=== PATIENT | female | born 1955 | race Caucasian/White ===

== ENCOUNTER 2016-08-01 08:48 | Outpatient (CLI) | payer MEDICAID | END 2016-08-01 08:49 | disposition EMS.NT | LOC: EMS 08:48 | PROVIDERS: ATTEND Surgery | DX: R41.0 Disorientation, unspecified (principal) ==

== ENCOUNTER 2016-08-09 10:16 | Outpatient (CLI) | payer MEDICAID | END 2016-08-09 10:17 | disposition home or self-care (01) | LOC: LAB 10:16 | PROVIDERS: ATTEND Nurse Practitioner Gerontology | DX: K74.60 Unspecified cirrhosis of liver (principal); R56.9 Unspecified convulsions | CPT/HCPCS: 36415; 80053; 80185; 82140 ==

== ENCOUNTER 2016-08-13 09:32 | Outpatient (CLI) | payer MEDICAID ==
[2016-08-13 10:20] LABS: ALBUMIN/GLOBULIN RATIO 1.2 (1.0-2.2); BILIRUBIN,TOTAL 1.5 mg/dL (0.2-1.0); CALCIUM 9.2 mg/dL (8.5-10.3); CREATININE 0.5 mg/dL (0.4-1.0); POTASSIUM 3.9 mmol/L (3.5-5.0); TOTAL PROTEIN 6.2 g/dL (6.7-8.2)
== END 2016-08-13 09:33 | disposition home or self-care (01) ==
LOC: LAB 09:32
PROVIDERS: ATTEND Nurse Practitioner Gerontology
DX: K74.60 Unspecified cirrhosis of liver (principal); R56.9 Unspecified convulsions
CPT/HCPCS: 36415; 80053; 80185; 82140

== ENCOUNTER 2016-09-13 16:11 | Outpatient (CLI) | payer MEDICAID | END 2016-09-13 16:12 | disposition home or self-care (01) | LOC: LAB 16:11 | PROVIDERS: ATTEND Nurse Practitioner Gerontology | DX: K74.60 Unspecified cirrhosis of liver (principal) | CPT/HCPCS: 36415; 82140; 87389 ==

== ENCOUNTER 2016-10-13 00:10 | Outpatient (CLI) | payer MEDICAID | END 2016-10-13 00:11 | disposition EMS.NT | LOC: EMS 00:10 | PROVIDERS: ATTEND Surgery | DX: R41.82 Altered mental status, unspecified (principal) ==

== ENCOUNTER 2018-05-10 23:09 | Emergency (ER) | payer MEDICAID ==
[2018-05-11 00:11] LABS: BASOPHILS % (AUTO) 0.8 %; EOSINOPHILS # (AUTO) 0.1 10^3/uL (0.0-0.7); EOSINOPHILS % (AUTO) 2.4 %; LYMPHOCYTES # (AUTO) 1.1 10^3/uL (1.5-3.5); LYMPHOCYTES % (AUTO) 24.4 %; MEAN CORPUSCULAR HEMOGLOBIN 32.2 pg (27.0-31.0); MEAN CORPUSCULAR HGB CONC 34.2 g/dL (32.0-36.0); MEAN PLATELET VOLUME 7.7 fL (7.9-10.8); MONOCYTES # (AUTO) 0.3 10^3/uL (0.0-1.0); MONOCYTES % (AUTO) 7.6 %; NEUTROPHILS # (AUTO) 2.9 10^3/uL (1.5-6.6); NEUTROPHILS % (AUTO) 64.8 %; PLT - PLATELET COUNT 111 10^3/uL (130-450); RED BLOOD COUNT 4.03 10^6/uL (4.20-5.40); RED CELL DISTRIBUTION WIDTH 15.9 % (12.0-15.0); WHITE BLOOD COUNT 4.4 x10^3/uL (4.8-10.8)
[2018-05-11 00:16] LABS: INR 1.7 (0.8-1.2); PT - PROTHROMBIN TIME 18.9 secs (9.9-12.6)
[2018-05-11 00:25] LABS: ALBUMIN 3.4 g/dL (3.2-5.5); ALBUMIN/GLOBULIN RATIO 1.1 (1.0-2.2); ALKALINE PHOSPHATASE 73 IU/L (42-121); ALT ALANINE AMINOTRANSFERASE 23 IU/L (10-60); AST ASPARTATE AMINOTRANSFERASE 40 IU/L (10-42); BILIRUBIN,TOTAL 1.8 mg/dL (0.2-1.0); BUN - BLOOD UREA NITROGEN 10 mg/dL (6-20); CALCIUM 9.3 mg/dL (8.5-10.3); CARBON DIOXIDE - CO2 22 mmol/L (21-32); CHLORIDE 109 mmol/L (101-111); CREATININE 0.3 mg/dL (0.4-1.0); GFR - MDRD 225 (>89); GLUCOSE 96 mg/dL (70-100); LIPASE 47 U/L (22-51); SODIUM 140 mmol/L (135-145); TOTAL PROTEIN 6.5 g/dL (6.7-8.2)
--- NOTE | 2018-05-11 00:27 | XRAY Report ---
Reason: chest pain Procedure Date: 05/11/2018 Accession Number: [id number] / [id number] Procedure: XR - Chest 1 View X-Ray CPT Code: 26019 FULL RESULT: EXAM: CHEST RADIOGRAPHY EXAM DATE: 05/11/2018 12:00 AM. CLINICAL HISTORY: Chest pain. COMPARISON: CHEST 1 VIEW 09/27/2014 9:27 PM. TECHNIQUE: 1 view. FINDINGS: Lungs/Pleura: No significant consolidation, effusion, or definite pneumothorax. Mediastinum: Cardiac silhouette is within normal limits when accounting for lung volumes and technique. Other: Old injury to the left acromioclavicular joint is noted, with grade 3 AC joint separation. Left distal clavicular osteotomy. Moderate left AC joint degenerative change partially visualized. IMPRESSION: Stable appearance of the chest without acute cardiopulmonary abnormality. [facility]
[2018-05-11 01:50] LABS: BILIRUBIN,URINE NEGATIVE (NEGATIVE); CLARITY,URINE CLEAR (CLEAR); GLUCOSE, URINE (UA) NEGATIVE (NEGATIVE); KETONES,URINE (UA) 15 mg/dL (NEGATIVE); LEUKOCYTE ESTERASE, URINE TRACE (NEGATIVE); MUDS CUTOFF CONCENTRATIONS CUTOFF CONC BELOW:; NITRITE,URINE NEGATIVE (NEGATIVE); OCCULT BLOOD,URINE NEGATIVE (NEGATIVE); PROTEIN,URINE NEGATIVE (NEGATIVE); UROBILINOGEN,URINE 0.2 (NORMAL) E.U./dL (NORMAL)
[2018-05-11 01:51] LABS: BACTERIA,URINE Rare /HPF (None Seen); MUCUS,URINE Few Strands; RBC,URINE None Seen /HPF (0-5); SQUAMOUS EPITHELIAL CELL,UR MOD Squamous (<= Few)
[2018-05-11 02:41] LABS: AMPHETAMINE SCREEN,URINE NEGATIVE (NEGATIVE); BENZODIAZEPINES SCREEN, URINE NEGATIVE (NEGATIVE); COCAINE SCREEN URINE NEGATIVE (NEGATIVE); METHADONE SCREEN, URINE NEGATIVE (NEGATIVE); METHAMPHETAMINES SCREEN, URINE NEGATIVE (NEGATIVE); OPIATE SCREEN, URINE NEGATIVE (NEGATIVE); OXYCODONE SCREEN, URINE NEGATIVE (NEGATIVE); PROPOXYPHENE SCREEN, URINE NEGATIVE (NEGATIVE); TRICYCLIC ANTIDEPRESSANT,URINE NEGATIVE (NEGATIVE)
--- NOTE | 2018-05-11 03:10 | ED Physician Documentation ---
History of Present Illness - Stated complaint Stated Complaint: HALLUCINATIONS - Chief complaint Chief Complaint: General - History obtained from History obtained from: Patient, Family - History of Present Illness Timing: How many days ago (2) Pain level max: 0 Pain level now: 0 Severity Comments: mild Quality: hearing voices Radiates to: none Improved by: nothing Worsened by: not taking lactulose Review of Systems Constitutional: reports: Reviewed and negative Eyes: reports: Reviewed and negative Ears: reports: Reviewed and negative Nose: reports: Reviewed and negative Throat: reports: Reviewed and negative Cardiac: reports: Reviewed and negative Respiratory: reports: Reviewed and negative GI: reports: Reviewed and negative : reports: Reviewed and negative Skin: reports: Reviewed and negative Musculoskeletal: reports: Reviewed and negative Neurologic: reports: Reviewed and negative Psychiatric: reports: Reviewed and negative Endocrine: reports: Reviewed and negative Immunocompromised: reports: Reviewed and negative PD PAST MEDICAL HISTORY - Past Medical History Cardiovascular: Hypertension, High cholesterol GI: Cirrhosis, Other : Incontinence HEENT: None Psych: Anxiety Musculoskeletal: Chronic back pain, Other - Past Surgical History Past Surgical History: Yes HEENT: Cataracts, Other - Present Medications Home Medications: Ambulatory Orders Medication Instructions Recorded Confirmed Lactulose 0 gm PO DAILY 05/10/18 05/10/18 Propranolol [Inderal] 20 mg PO DAILY 05/10/18 05/10/18 Lactulose 30 gm PO QID PRN #100 packet 05/11/18 - Allergies Allergies/Adverse Reactions: Allergies Allergy/AdvReac Type Severity Reaction Status Date / Time No Known Drug Allergies Allergy Verified 05/10/18 23:17 - Living Situation Living Situation: reports: With family Living Arrangement: reports: At home - Social History Does the pt smoke?: No Smoking Status: Never smoker Does the pt drink ETOH?: Yes Does the pt have substance abuse?: No - Family History Family history: reports: Other (Reviewed and not pertinent) - Immunizations Immunizations are current?: Yes - POLST Patient has POLST: No PD ED PE NORMAL - Vitals Vital signs reviewed: Yes - General General: Alert and oriented X 3, No acute distress - HEENT HEENT: PERRL - Neck Neck: Supple, no meningeal sign - Cardiac Cardiac: RRR, No murmur - Respiratory Respiratory: Clear bilaterally - Abdomen Abdomen: Normal bowel sounds, Soft, Non tender, Non distended - Derm Derm: Warm and dry - Extremities Extremities: No deformity - Neuro Neuro: Alert and oriented X 3, Other (No asterixis) - Psych Psych: Normal mood, Normal affect Results - Vitals Vitals: Vital Signs - 24 hr 05/10/18 05/11/18 05/11/18 23:12 01:10 03:46 Temperature 37.2 C 36.3 C L 36.9 C Heart Rate 83 74 86 Respiratory 18 16 18 Rate Blood Pressure 154/77 H 123/72 129/81 H O2 Saturation 97 96 95 Oxygen O2 Source Room air - Labs Labs: Laboratory Tests 05/10/18 05/10/18 05/10/18 23:50 23:50 23:50 WBC 4.4 L RBC 4.03 L Hgb 13.0 Hct 37.9 MCV 94.0 MCH 32.2 H MCHC 34.2 RDW 15.9 H Plt Count 111 L MPV 7.7 L Neut # (Auto) 2.9 Lymph # (Auto) 1.1 L [place] # (Auto) 0.3 Eos # (Auto) 0.1 Baso # (Auto) 0.0 Absolute Nucleated RBC 0.00 Nucleated RBC % 0.1 PT 18.9 H INR 1.7 H Sodium 140 Potassium 3.2 L Chloride 109 Carbon Dioxide 22 Anion Gap 9.0 BUN 10 Creatinine 0.3 L Estimated GFR (MDRD) 225 Glucose 96 Lactic Acid Calcium 9.3 Total Bilirubin 1.8 H AST 40 ALT 23 Alkaline Phosphatase 73 Ammonia Troponin I Total Protein 6.5 L Albumin 3.4 Globulin 3.1 Albumin/Globulin Ratio 1.1 Lipase 47 TSH Urine Color Urine Clarity Urine pH Ur Specific [place] Urine Protein Urine Glucose (UA) Urine Ketones Urine Occult Blood Urine Nitrite Urine Bilirubin Urine Urobilinogen Ur Leukocyte Esterase Urine RBC Urine WBC Ur Squamous Epith Cells Urine Bacteria Urine Mucus Ur Microscopic Review Urine Culture Comments Urine Opiates Screen Ur Oxycodone Screen Urine Methadone Screen Ur Propoxyphene Screen Ur Barbiturates Screen Ur Tricyclics Screen Ur Phencyclidine Scrn Ur Amphetamine Screen U Methamphetamines Scrn U Benzodiazepines Scrn Urine Cocaine Screen U Cannabinoids Screen Ethyl Alcohol < 5.0 05/10/18 05/10/18 05/10/18 23:50 23:50 23:50 WBC RBC Hgb Hct MCV MCH MCHC RDW Plt Count MPV Neut # (Auto) Lymph # (Auto) [place] # (Auto) Eos # (Auto) Baso # (Auto) Absolute Nucleated RBC Nucleated RBC % PT INR Sodium Potassium Chloride Carbon Dioxide Anion Gap BUN Creatinine Estimated GFR (MDRD) Glucose Lactic Acid 1.2 Calcium Total Bilirubin AST ALT Alkaline Phosphatase Ammonia 43.1 H Troponin I Total Protein Albumin Globulin Albumin/Globulin Ratio Lipase TSH 0.75 Urine Color Urine Clarity Urine pH Ur Specific [place] Urine Protein Urine Glucose (UA) Urine Ketones Urine Occult Blood Urine Nitrite Urine Bilirubin Urine Urobilinogen Ur Leukocyte Esterase Urine RBC Urine WBC Ur Squamous Epith Cells Urine Bacteria Urine Mucus Ur Microscopic Review Urine Culture Comments Urine Opiates Screen Ur Oxycodone Screen Urine Methadone Screen Ur Propoxyphene Screen Ur Barbiturates Screen Ur Tricyclics Screen Ur Phencyclidine Scrn Ur Amphetamine Screen U Methamphetamines Scrn U Benzodiazepines Scrn Urine Cocaine Screen U Cannabinoids Screen Ethyl Alcohol 05/10/18 05/11/18 23:50 01:32 WBC RBC Hgb Hct MCV MCH MCHC RDW Plt Count MPV Neut # (Auto) Lymph # (Auto) [place] # (Auto) Eos # (Auto) Baso # (Auto) Absolute Nucleated RBC Nucleated RBC % PT INR Sodium Potassium Chloride Carbon Dioxide Anion Gap BUN Creatinine Estimated GFR (MDRD) Glucose Lactic Acid Calcium Total Bilirubin AST ALT Alkaline Phosphatase Ammonia Troponin I < 0.04 Total Protein Albumin Globulin Albumin/Globulin Ratio Lipase TSH Urine Color YELLOW Urine Clarity CLEAR Urine pH 7.0 Ur Specific [place] 1.015 Urine Protein NEGATIVE Urine Glucose (UA) NEGATIVE Urine Ketones 15 H Urine Occult Blood NEGATIVE Urine Nitrite NEGATIVE Urine Bilirubin NEGATIVE Urine Urobilinogen 0.2 (NORMAL) Ur Leukocyte Esterase TRACE H Urine RBC None Seen Urine WBC 4-5 Ur Squamous Epith Cells MOD Squamous H Urine Bacteria Rare Urine Mucus Few Strands Ur Microscopic Review INDICATED Urine Culture Comments NOT INDICATED Urine Opiates Screen NEGATIVE Ur Oxycodone Screen NEGATIVE Urine Methadone Screen NEGATIVE Ur Propoxyphene Screen NEGATIVE Ur Barbiturates Screen NEGATIVE Ur Tricyclics Screen NEGATIVE Ur Phencyclidine Scrn NEGATIVE Ur Amphetamine Screen NEGATIVE U Methamphetamines Scrn NEGATIVE U Benzodiazepines Scrn NEGATIVE Urine Cocaine Screen NEGATIVE U Cannabinoids Screen NEGATIVE Ethyl Alcohol PD MEDICAL DECISION MAKING - ED course Complexity details: reviewed results, re-evaluated patient, d/w patient, d/w family ED course: 63-year-old female With end-stage liver disease presents with auditory hallucinations. Patient has no asterixis on exam. Alert and oriented to person, place, date, president. Patient complaining of intermittent auditory hallucinations but otherwise is at baseline.Patient discharged in the care of family with prescription for lactulose. Departure - Departure Disposition: 01 Home, Self Care Clinical Impression: Increased ammonia level, Hallucination Condition: Good Instructions: Lactulose oral solution Prescriptions: Lactulose 30 gm PO QID PRN #100 packet PRN Reason: for 2-3 loose poops daily Discharge Date/Time: 05/11/18 04:00
[2018-05-11 03:47] VITALS: BP 129/81
== END 2018-05-11 04:00 | disposition home or self-care (01) ==
LOC: ED 23:09
DX: R44.0 Auditory hallucinations (principal); E72.20 Disorder of urea cycle metabolism, unspecified; E78.00 Pure hypercholesterolemia, unspecified; I10 Essential (primary) hypertension; K72.90 Hepatic failure, unspecified without coma
CPT/HCPCS: 36415; 71045; 80053; 80306; 80320; 81001; 81003; 82140; 83605; 83690; 84443; 84484; 85025; 85610; 87040; 87086; 93005; 99283

== ENCOUNTER 2018-05-12 20:55 | Outpatient (CLI) | payer MEDICAID | END 2018-05-12 20:56 | disposition critical access hospital (66) | LOC: EMS 20:55 | PROVIDERS: ATTEND Surgery | DX: R44.8 Other symptoms and signs involving general sensations and perceptions (principal) | CPT/HCPCS: A0425; A0429 ==

== ENCOUNTER 2018-05-12 21:14 | Emergency (ER) | payer MEDICAID ==
[2018-05-12] MEDS ORDERED: POTASSIUM BICARB 25 MEQ TABLET PO STA (21:30)
--- NOTE | 2018-05-12 21:33 | ED Physician Documentation ---
PD HPI SYNCOPE - Stated complaint Stated Complaint: SZ - History obtained from History obtained from: Patient - History of Present Illness Timing - onset: Other (63-year-old woman with history of alcohol abuse, she says she has not had a drink in a year and a half. She also has a history of seizures. Recently she is changed her diet a lot and says she is having a lot of Merly seizures I do not know what Merly seizures are, she describes them as feeling like she is about to having a seizure but never having a big seizure. She never loses consciousness. She was seen here the other night by Dr. Miranda for hallucinations which have resolved with the administration of the lactulose that she was prescribed. She was on phenytoin in the past for seizures but has not been for a couple of years.) Review of Systems Constitutional: reports: Reviewed and negative Cardiac: reports: Reviewed and negative Respiratory: reports: Reviewed and negative PD PAST MEDICAL HISTORY - Past Medical History Cardiovascular: Hypertension, High cholesterol GI: Cirrhosis, Other : Incontinence HEENT: None Psych: Anxiety Musculoskeletal: Chronic back pain, Other - Past Surgical History Past Surgical History: Yes HEENT: Cataracts, Other - Present Medications Home Medications: Ambulatory Orders Medication Instructions Recorded Confirmed Lactulose 0 gm PO DAILY 05/10/18 05/10/18 Propranolol [Inderal] 20 mg PO DAILY 05/10/18 05/10/18 Lactulose 30 gm PO QID PRN #100 packet 05/11/18 - Allergies Allergies/Adverse Reactions: Allergies Allergy/AdvReac Type Severity Reaction Status Date / Time No Known Drug Allergies Allergy Verified 05/10/18 23:17 - Social History Does the pt smoke?: No Smoking Status: Never smoker Does the pt drink ETOH?: Yes Does the pt have substance abuse?: No - Immunizations Immunizations are current?: Yes - POLST Patient has POLST: No PD ED PE NORMAL - Vitals Vital signs reviewed: Yes - General General: Alert and oriented X 3, No acute distress - HEENT HEENT: PERRL, EOMI - Neck Neck: Supple, no meningeal sign, No bony TTP - Cardiac Cardiac: RRR, No murmur - Respiratory Respiratory: No respiratory distress, Clear bilaterally - Abdomen Abdomen: Non tender - Back Back: No CVA TTP, No spinal TTP - Derm Derm: Normal color, Warm and dry - Extremities Extremities: No edema, No calf tenderness / cord - Neuro Neuro: Alert and oriented X 3, Normal speech Eye Opening: Spontaneous Motor: Obeys Commands Verbal: Oriented GCS Score: 15 Results - Vitals Vitals: Oxygen O2 Source Room air PD MEDICAL DECISION MAKING - ED course ED course: This is a 63-year-old woman who presents with poorly described or seizure episodes without any actual seizure activity. Her examination is normal. She had a thorough work-up the other night demonstrating hypokalemia which she seems to be somewhat perseverating on and like her potassium replaced again. I discussed with her that I recommended may be putting her back on phenytoin which she is been on in the past pending neurologic follow-up which she does not want to do. Departure - Departure Disposition: 01 Home, Self Care Clinical Impression: Seizure-like activity Condition: Good Record reviewed to determine appropriate education?: Yes Comments: Return anytime if you want to start seizure medication or if you get worse. Otherwise I recommend you follow-up with your neurologist.
[2018-05-12 21:45] VITALS: BP 139/78
== END 2018-05-12 21:51 | disposition home or self-care (01) ==
LOC: EDUNIT# → ED 21:14
DX: R56.9 Unspecified convulsions (principal); E87.6 Hypokalemia; I10 Essential (primary) hypertension
CPT/HCPCS: 99283; A9270

== ENCOUNTER 2018-08-20 09:15 | Emergency (ER) | payer MEDICAID ==
--- NOTE | 2018-08-20 09:41 | ED Physician Documentation ---
PD HPI BACK PAIN - Stated complaint Stated Complaint: BACK PX - Chief complaint Chief Complaint: General - History obtained from History obtained from: Patient - History of Present Illness Timing - onset: Yesterday Timing - duration: Days (1) Timing - details: Abrupt onset, Still present Location: Lower, Right Quality: Aching (mostly aching pain lower right back, but has feeling of myalgias diffusely. Has some cough and congestion. Feeling of chills without measured fever. Some nausea.) Associated symptoms: Weakness (generally). No: Fever (but feeling of chills), Numbness, Incontinent of urine, Hematuria Worsened by: Movement. No: Twisting Contributing factors: Other (feeling like URI symptoms. Has not had dysuria.). No: Lifting, Twisting, Trauma Similar symptoms before: Has not had sx before Recently seen: Not recently seen Review of Systems Constitutional: reports: Chills, Myalgias, Fatigue. denies: Fever Nose: reports: Congestion. denies: Rhinorrhea / runny nose Throat: denies: Sore throat Cardiac: denies: Chest pain / pressure Respiratory: reports: Cough GI: reports: Nausea. denies: Vomiting, Diarrhea : denies: Dysuria, Frequency, Hematuria Skin: reports: Lesions (bisters on 2nd toes both sides, states has been walking a lot the past week. Had wet shoes without socks and walked in them a lot the past 2 days.). denies: Rash Neurologic: reports: Generalized weakness. denies: Focal weakness, Numbness, Near syncope, Altered mental status, Headache, Head injury Endocrine: denies: Weight loss Immunocompromised: denies: Immunocompromised PD PAST MEDICAL HISTORY - Past Medical History Cardiovascular: Hypertension, High cholesterol GI: Cirrhosis, Other : Incontinence HEENT: None Psych: Anxiety Musculoskeletal: Chronic back pain, Other - Past Surgical History Past Surgical History: Yes HEENT: Cataracts, Other - Present Medications Home Medications: Ambulatory Orders Medication Instructions Recorded Confirmed Lactulose 0 gm PO DAILY 05/10/18 08/20/18 Mupirocin 1 applic TP TID #15 g 08/20/18 Naproxen 500 mg PO BID #20 tablet 08/20/18 Vits A and D/White Pet/Lanolin [A 1 applic TP DAILY #42.5 oint...g. 08/20/18 and D Ointment] - Allergies Allergies/Adverse Reactions: Allergies Allergy/AdvReac Type Severity Reaction Status Date / Time No Known Drug Allergies Allergy Verified 08/20/18 09:29 - Social History Does the pt smoke?: No Smoking Status: Never smoker Does the pt drink ETOH?: Yes Does the pt have substance abuse?: No - Immunizations Immunizations are current?: Yes - POLST Patient has POLST: No PD ED PE NORMAL - Vitals Vital signs reviewed: Yes - General General: Alert and oriented X 3, No acute distress, Well developed/nourished - HEENT HEENT: Moist mucous membranes, Pharynx benign - Neck Neck: Supple, no meningeal sign, No adenopathy - Cardiac Cardiac: RRR, No murmur - Respiratory Respiratory: Clear bilaterally - Abdomen Abdomen: Normal bowel sounds, Soft, Non tender, Non distended - Back Back: No CVA TTP - Derm Derm: Normal color, Warm and dry - Extremities Extremities: Other (2nd toes both feet with unroofed blisters with skin still attached, moist skin, without signs of infection at the bases. bottoms of feet both sides are red with some mild element of punctate skin changes without pustules, appears c/w wet injury. ) - Neuro Neuro: Alert and oriented X 3, No motor deficit, Normal speech Results - Vitals Vitals: Vital Signs - 24 hr 08/20/18 08/20/18 08/20/18 09:24 09:28 13:04 Temperature 35.7 C L 36.6 C Heart Rate 79 82 84 Respiratory 14 18 18 Rate Blood Pressure 170/98 H 153/71 H 149/84 H O2 Saturation 99 97 96 Oxygen O2 Source Room air - Labs Labs: Laboratory Tests 08/20/18 08/20/18 08/20/18 10:16 10:16 10:16 WBC 3.6 L RBC 3.74 L Hgb 12.4 Hct 35.3 L MCV 94.4 MCH 33.2 H MCHC 35.1 RDW 15.5 H Plt Count 73 L MPV 10.0 Neut # (Auto) 2.3 Lymph # (Auto) 0.7 L [place] # (Auto) 0.5 Eos # (Auto) 0.1 Baso # (Auto) 0.0 Absolute Nucleated RBC 0.00 Nucleated RBC % 0.0 Sodium 139 Potassium 3.3 L Chloride 107 Carbon Dioxide 22 Anion Gap 10.0 BUN 6 Creatinine 0.4 Estimated GFR (MDRD) 161 Glucose 118 H Lactic Acid 2.6 H Calcium 9.3 Magnesium 1.5 L Total Bilirubin 2.4 H AST 44 H ALT 26 Alkaline Phosphatase 79 Total Protein 6.2 L Albumin 3.5 Globulin 2.7 Albumin/Globulin Ratio 1.3 Lipase 52 H Urine Color Urine Clarity Urine pH Ur Specific [place] Urine Protein Urine Glucose (UA) Urine Ketones Urine Occult Blood Urine Nitrite Urine Bilirubin Urine Urobilinogen Ur Leukocyte Esterase Ur Microscopic Review Urine Culture Comments 08/20/18 10:30 WBC RBC Hgb Hct MCV MCH MCHC RDW Plt Count MPV Neut # (Auto) Lymph # (Auto) [place] # (Auto) Eos # (Auto) Baso # (Auto) Absolute Nucleated RBC Nucleated RBC % Sodium Potassium Chloride Carbon Dioxide Anion Gap BUN Creatinine Estimated GFR (MDRD) Glucose Lactic Acid Calcium Magnesium Total Bilirubin AST ALT Alkaline Phosphatase Total Protein Albumin Globulin Albumin/Globulin Ratio Lipase Urine Color YELLOW Urine Clarity CLEAR Urine pH 7.0 Ur Specific [place] <=1.005 Urine Protein NEGATIVE Urine Glucose (UA) NEGATIVE Urine Ketones NEGATIVE Urine Occult Blood NEGATIVE Urine Nitrite NEGATIVE Urine Bilirubin NEGATIVE Urine Urobilinogen 4 H Ur Leukocyte Esterase NEGATIVE Ur Microscopic Review NOT INDICATED Urine Culture Comments NOT INDICATED PD MEDICAL DECISION MAKING - ED course Complexity details: re-evaluated patient, considered differential (consider viral illness, but will look for pneumonia, UTI, check blood count and lytes. Seems dehydrated likely. ), d/w patient Departure - Departure Disposition: 01 Home, Self Care Clinical Impression: Viral syndrome, Myalgia Toe blister without infection Qualifiers: Encounter type: initial encounter Laterality: unspecified laterality Qualified Code(s): S90.426A - Blister (nonthermal), unspecified lesser toe(s), initial encounter Condition: Stable Record reviewed to determine appropriate education?: Yes Instructions: ED Viral Syndrome Follow-Up: Odette Sheikh ARNP [Primary Care Provider] - Prescriptions: Mupirocin 1 applic TP TID #15 g Naproxen 500 mg PO BID #20 tablet Vits A and D/White Pet/Lanolin [A and D Ointment] 1 applic TP DAILY #42.5 oint...g. Comments: It sounds like you have a viral illness. No obvious focal source of bacterial infection. Stay well-hydrated. Your potassium and magnesium were little bit low and you could do some [id number] supplements or improved diet intake. For your muscle aches and such, you can use naproxen twice daily with food and stay well-hydrated. For the toe blisters, use mupirocin antibiotic ointment lightly once or twice daily to them to keep them from being infected. They do not look infected at this time. Soaking your feet is fine. You can use A&E ointment very lightly to the feet after that to help with skin healing. This will help protect it as well. Recheck if not improved over the next few days. Return if worsening symptoms. Discharge Date/Time: 08/20/18 13:05
[2018-08-20 10:22] LABS: BASOPHILS % (AUTO) 0.8 %; EOSINOPHILS # (AUTO) 0.1 10^3/uL (0.0-0.7); EOSINOPHILS % (AUTO) 2.8 %; HGB - HEMOGLOBIN 12.4 g/dL (12.0-16.0); LYMPHOCYTES # (AUTO) 0.7 10^3/uL (1.5-3.5); LYMPHOCYTES % (AUTO) 20.5 %; MEAN CORPUSCULAR HEMOGLOBIN 33.2 pg (27.0-31.0); MEAN CORPUSCULAR HGB CONC 35.1 g/dL (32.0-36.0); MEAN CORPUSCULAR VOLUME 94.4 fL (81.0-99.0); MONOCYTES # (AUTO) 0.5 10^3/uL (0.0-1.0); MONOCYTES % (AUTO) 12.5 %; NEUTROPHILS # (AUTO) 2.3 10^3/uL (1.5-6.6); NEUTROPHILS % (AUTO) 63.1 %; PLT - PLATELET COUNT 73 10^3/uL (130-450); RED BLOOD COUNT 3.74 10^6/uL (4.20-5.40); RED CELL DISTRIBUTION WIDTH 15.5 % (12.0-15.0); WHITE BLOOD COUNT 3.6 x10^3/uL (4.8-10.8)
[2018-08-20 10:34] LABS: ALBUMIN 3.5 g/dL (3.2-5.5); ALBUMIN/GLOBULIN RATIO 1.3 (1.0-2.2); BILIRUBIN,TOTAL 2.4 mg/dL (0.2-1.0); CALCIUM 9.3 mg/dL (8.5-10.3); CREATININE 0.4 mg/dL (0.4-1.0); MAGNESIUM 1.5 mg/dL (1.7-2.8); TOTAL PROTEIN 6.2 g/dL (6.7-8.2)
--- NOTE | 2018-08-20 10:44 | XRAY Report ---
Reason: dyspnea/ cough Procedure Date: 08/20/2018 Accession Number: [id number] / [id number] Procedure: XR - Chest 2 View X-Ray CPT Code: 74686 FULL RESULT: EXAM: CHEST RADIOGRAPHY EXAM DATE: 08/20/2018 10:32 AM. CLINICAL HISTORY: Dyspnea/ cough. COMPARISON: CHEST 1 VIEW 05/10/2018 11:55 PM. TECHNIQUE: 2 views. FINDINGS: Lungs/Pleura: No focal opacities evident. No pleural effusion. No pneumothorax. Normal volumes. Mediastinum: Heart and mediastinal contours are unremarkable. Other: None. IMPRESSION: Normal 2-view chest radiography. [facility]
[2018-08-20 10:45] LABS: BILIRUBIN,URINE NEGATIVE (NEGATIVE); GLUCOSE, URINE (UA) NEGATIVE (NEGATIVE); KETONES,URINE (UA) NEGATIVE (NEGATIVE); LEUKOCYTE ESTERASE, URINE NEGATIVE (NEGATIVE); NITRITE,URINE NEGATIVE (NEGATIVE); OCCULT BLOOD,URINE NEGATIVE (NEGATIVE); PROTEIN,URINE NEGATIVE (NEGATIVE); UROBILINOGEN,URINE 4 E.U./dL (NORMAL)
[2018-08-20 10:47] LABS: CLARITY,URINE CLEAR (CLEAR)
[2018-08-20] MEDS ORDERED: SODIUM CHLORIDE 0.9% 1,000 ML IV ONE (11:08)
[2018-08-20] MEDS ORDERED: POTASSIUM CHLORIDE 20 MEQ TABLET PO STA (11:08)
[2018-08-20] MEDS ORDERED: MAGNESIUM SULFATE 2 GRAM 2 GM/50 ML BAG IV ONE (11:08)
[2018-08-20] MEDS ORDERED: KETOROLAC 15 MG/ML VIAL IVP STA (11:09)
[2018-08-20 13:06] VITALS: BP 149/84
== END 2018-08-20 13:05 | disposition home or self-care (01) ==
LOC: ED 09:15
DX: B34.9 Viral infection, unspecified (principal); M79.18 Myalgia, other site; M54.5 Low back pain; S90.425A Blister (nonthermal), left lesser toe(s), initial encounter; S90.424A Blister (nonthermal), right lesser toe(s), initial encounter; X50.9XXA Other and unspecified overexertion or strenuous movements or postures, initial encounter; Y93.01 Activity, walking, marching and hiking; I10 Essential (primary) hypertension
CPT/HCPCS: 36415; 71046; 80053; 81003; 83605; 83690; 83735; 85025; 96374; 96375; 99283; A9270; 81001; 87086

== ENCOUNTER 2018-09-21 12:32 | Outpatient (CLI) | payer MEDICAID | END 2018-09-21 12:33 | disposition critical access hospital (66) | LOC: EMS 12:32 | PROVIDERS: ATTEND Surgery | DX: R51 Headache (principal); R47.81 Slurred speech | CPT/HCPCS: A0425; A0427; A0999 ==

== ENCOUNTER 2018-09-21 12:48 | Emergency (ER) | payer MEDICAID ==
[2018-09-21] MEDS ORDERED: SODIUM CHLORIDE 0.9% 2,000 ML IV ONE (13:27)
--- NOTE | 2018-09-21 13:33 | ED Physician Documentation ---
History of Present Illness - Stated complaint Stated Complaint: ETOH - Chief complaint Chief Complaint: General - Additonal information Additional information: This is a 63-year-old female with a reported history of seizure disorder, presents with alcohol intoxication and concern that she may have a seizure. Patient states that she has not had a seizure in months, but in the past she has had [place] seizures. She states this morning she was waiting for friends of the mary jo velez and she began to feel an aura, police arrived for unclear reasons and she asked them to call EMS because she was concerned about having a seizure. She endorses drinking alcohol this morning. Review of Systems Constitutional: denies: Fever Eyes: denies: Loss of vision Ears: denies: Loss of hearing Cardiac: denies: Chest pain / pressure Respiratory: denies: Dyspnea GI: denies: Abdominal Pain : denies: Dysuria Skin: denies: Lesions Neurologic: reports: Other (alcohol intoxication). denies: Syncope PD PAST MEDICAL HISTORY - Past Medical History Cardiovascular: Hypertension, High cholesterol GI: Cirrhosis, Other : Incontinence HEENT: None Psych: Anxiety Musculoskeletal: Chronic back pain, Other - Past Surgical History Past Surgical History: Yes HEENT: Cataracts, Other - Present Medications Home Medications: Ambulatory Orders Medication Instructions Recorded Confirmed RX: Lactulose 0 gm PO DAILY 05/10/18 08/20/18 RX: Mupirocin 1 applic TP TID #15 g 08/20/18 RX: Naproxen 500 mg PO BID #20 tablet 08/20/18 Vits A and D/White Pet/Lanolin [A 1 applic TP DAILY #42.5 oint...g. 08/20/18 and D Ointment] - Allergies Allergies/Adverse Reactions: Allergies Allergy/AdvReac Type Severity Reaction Status Date / Time codeine Allergy Unknown Verified 09/21/18 13:07 loratadine Allergy Unknown Verified 09/21/18 13:07 - Social History Does the pt smoke?: No Smoking Status: Never smoker Does the pt drink ETOH?: Yes Does the pt have substance abuse?: No - Immunizations Immunizations are current?: Yes - POLST Patient has POLST: No PD ED PE NORMAL - Vitals Vital signs reviewed: Yes - General General: Alert and oriented X 3, No acute distress - HEENT HEENT: PERRL, Other (Dry mucous membranes) - Neck Neck: Supple, no meningeal sign - Cardiac Cardiac: RRR, No murmur - Respiratory Respiratory: Clear bilaterally - Abdomen Abdomen: Normal bowel sounds, Soft, Non tender, Non distended - Derm Derm: Warm and dry - Extremities Extremities: No deformity - Neuro Neuro: Alert and oriented X 3, 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, No motor deficit, No sensory deficit, Other (Slightly slurred speech, but cooperative and conversant) - Psych Psych: Normal mood, Normal affect Results - Vitals Vitals: Vital Signs - 24 hr 09/21/18 09/21/18 09/21/18 13:04 15:07 16:28 Temperature 36.6 C Heart Rate 74 87 Respiratory 16 18 18 Rate Blood Pressure 91/57 L 118/64 129/70 O2 Saturation 96 97 95 Oxygen O2 Source Room air - Labs Labs: Laboratory Tests 09/21/18 09/21/18 13:40 13:40 WBC 4.7 L RBC 3.29 L Hgb 10.9 L Hct 33.3 L MCV 101.2 H MCH 33.1 H MCHC 32.7 RDW 17.9 H Plt Count 63 L MPV 9.2 Neut # (Auto) 3.4 Lymph # (Auto) 0.6 L [place] # (Auto) 0.6 Eos # (Auto) 0.0 Baso # (Auto) 0.1 Absolute Nucleated RBC 0.00 Nucleated RBC % 0.0 Sodium 148 H Potassium 3.4 L Chloride 114 H Carbon Dioxide 20 L Anion Gap 14.0 H BUN 10 Creatinine 0.9 Estimated GFR (MDRD) 63 L Glucose 96 Calcium 8.2 L Magnesium 1.8 PD MEDICAL DECISION MAKING - ED course Complexity details: considered differential (dehydration, intoxication, electrolyte disturbance, NORY, seizure) ED course: On exam patient is mildly intoxicated and dehydrated appearing, with borderline hypotension. IV established and patient was given 2 L NS with immediate improvement in her blood pressure. Labs are notable for stigmata of dehydration including elevated chloride and sodium. She also has thrombocytopenia which is likely chronic from her drinking. Her potassium is slightly low and was repleted orally. After observation for multiple hours in the ED patient is clinically sober, ambulating steadily without issue, tolerating PO, and no longer feels like she may have a seizure. She appears to have been dehydrated and mildly intoxicated, which likely caused her symptoms. I discussed our results, the dangers of drinking, especially with its relation to seizures and withdrawal seizures. I recommended close follow up with her PCP and reviewed return precautions. She is feeling well with unremarkable vital signs and was discharged home. Departure - Departure Disposition: 01 Home, Self Care Clinical Impression: Hypokalemia, Dehydration Condition: Stable Instructions: Hypokalemia Dc Follow-Up: Odette Sheikh ARNP [Primary Care Provider] - Within 1 week Comments: You were seen today for concern that you were about to have a seizure. You appear dehydrated your potassium was low. Your platelets are also low, which may be a side effect from long-term drinking. Please follow-up with your primary care provider for recheck of your potassium and platlets and avoid alcohol use. Discharge Date/Time: 09/21/18 16:44
[2018-09-21 13:50] LABS: BASOPHILS # (AUTO) 0.1 10^3/uL (0.0-0.1); BASOPHILS % (AUTO) 1.1 %; EOSINOPHILS % (AUTO) 0.6 %; HGB - HEMOGLOBIN 10.9 g/dL (12.0-16.0); LYMPHOCYTES # (AUTO) 0.6 10^3/uL (1.5-3.5); LYMPHOCYTES % (AUTO) 13.2 %; MEAN CORPUSCULAR HEMOGLOBIN 33.1 pg (27.0-31.0); MEAN CORPUSCULAR HGB CONC 32.7 g/dL (32.0-36.0); MEAN CORPUSCULAR VOLUME 101.2 fL (81.0-99.0); MEAN PLATELET VOLUME 9.2 fL (7.9-10.8); MONOCYTES # (AUTO) 0.6 10^3/uL (0.0-1.0); MONOCYTES % (AUTO) 12.2 %; NEUTROPHILS # (AUTO) 3.4 10^3/uL (1.5-6.6); NEUTROPHILS % (AUTO) 72.7 %; PLT - PLATELET COUNT 63 10^3/uL (130-450); RED BLOOD COUNT 3.29 10^6/uL (4.20-5.40); RED CELL DISTRIBUTION WIDTH 17.9 % (12.0-15.0); WHITE BLOOD COUNT 4.7 x10^3/uL (4.8-10.8)
[2018-09-21 13:55] LABS: CALCIUM 8.2 mg/dL (8.5-10.3); CREATININE 0.9 mg/dL (0.4-1.0); MAGNESIUM 1.8 mg/dL (1.7-2.8)
[2018-09-21] MEDS ORDERED: POTASSIUM CHLORIDE 20 MEQ/15 ML UDC PO ONE (16:00)
[2018-09-21 16:29] VITALS: BP 129/70
[2018-09-21] MEDS ORDERED: POTASSIUM CHLORIDE 20 MEQ/15 ML UDC PO SCH (17:00)
== END 2018-09-21 16:44 | disposition home or self-care (01) ==
LOC: EDUNIT# → ED 12:48
DX: F10.129 Alcohol abuse with intoxication, unspecified (principal); E86.0 Dehydration; E87.6 Hypokalemia; I95.9 Hypotension, unspecified; D69.6 Thrombocytopenia, unspecified; I10 Essential (primary) hypertension
CPT/HCPCS: 36415; 80048; 83735; 85025; 96360; 96361; 99283; 99284; A9270

== ENCOUNTER 2018-11-22 01:55 | Outpatient (CLI) | payer MEDICAID | END 2018-11-22 01:56 | disposition EMS.NT | LOC: EMS 01:55 | PROVIDERS: ATTEND Surgery | DX: S00.81XA Abrasion of other part of head, initial encounter (principal); W18.30XA Fall on same level, unspecified, initial encounter; Y92.414 Local residential or business street as the place of occurrence of the external cause ==

== ENCOUNTER 2019-01-30 10:42 | Outpatient (CLI) | payer MEDICAID ==
[2019-01-30 18:51] LABS: BASOPHILS % (AUTO) 1.4 %; EOSINOPHILS % (AUTO) 1.4 %; HGB - HEMOGLOBIN 13.6 g/dL (12.0-16.0); LYMPHOCYTES % (AUTO) 19.3 %; MEAN CORPUSCULAR HEMOGLOBIN 33.3 pg (27.0-31.0); MEAN CORPUSCULAR HGB CONC 32.5 g/dL (32.0-36.0); MEAN CORPUSCULAR VOLUME 102.7 fL (81.0-99.0); MEAN PLATELET VOLUME 10.6 fL (7.9-10.8); MONOCYTES % (AUTO) 12.4 %; NEUTROPHILS % (AUTO) 65.2 %; PLT - PLATELET COUNT 78 10^3/uL (130-450); RED BLOOD COUNT 4.08 10^6/uL (4.20-5.40); RED CELL DISTRIBUTION WIDTH 15.6 % (12.0-15.0); WHITE BLOOD COUNT 2.9 x10^3/uL (4.8-10.8)
[2019-01-30 19:06] LABS: ABNORMAL LYMPHS % (MANUAL) 0 %
[2019-01-30 19:21] LABS: ALBUMIN 3.6 g/dL (3.2-5.5); ALBUMIN/GLOBULIN RATIO 1.2 (1.0-2.2); ALKALINE PHOSPHATASE 91 IU/L (42-121); ALT ALANINE AMINOTRANSFERASE 28 IU/L (10-60); AST ASPARTATE AMINOTRANSFERASE 55 IU/L (10-42); BILIRUBIN,TOTAL 3.1 mg/dL (0.2-1.0); BUN - BLOOD UREA NITROGEN 12 mg/dL (6-20); CALCIUM 9.1 mg/dL (8.5-10.3); CARBON DIOXIDE - CO2 25 mmol/L (21-32); CHLORIDE 112 mmol/L (101-111); CHOL/HDL RATIO 1.9 (<4.4); CHOLESTEROL 157 mg/dL; CREATININE 0.5 mg/dL (0.4-1.0); GFR - MDRD 125 (>89); GLUCOSE 92 mg/dL (70-100); HDL CHOLESTEROL 83 mg/dL; SODIUM 146 mmol/L (135-145); TOTAL PROTEIN 6.7 g/dL (6.7-8.2)
[2019-01-30 19:23] LABS: BAND NEUTROPHILS % (MANUAL) 3 %; EOSINOPHILS # (MANUAL) 0.1 10^3/uL (0-0.7); LYMPHOCYTES # (MANUAL) 0.6 10^3/uL (1.5-3.5); LYMPHOCYTES % (MANUAL) 21 %; MONOCYTES # (MANUAL) 0.3 10^3/uL (0.0-1.0)
[2019-01-30 19:24] LABS: DIFFERENTIAL COMMENT MANUAL DIFFERENTIAL; PLATELET ESTIMATE, MANUAL DECREASED (<130,000) (NORMAL); PLATELET MORPHOLOGY NORMAL APPEARANCE (NORMAL)
== END 2019-01-30 23:59 | disposition home or self-care (01) ==
LOC: LAB.N 10:42
PROVIDERS: ATTEND Nurse Practitioner Gerontology
DX: B19.20 Unspecified viral hepatitis C without hepatic coma (principal); E87.6 Hypokalemia; Z79.899 Other long term (current) drug therapy
CPT/HCPCS: 36415; 80053; 80061; 81599; 83721; 84443; 85025; 86803; 87521

== ENCOUNTER 2019-02-23 09:09 | Outpatient (CLI) | payer MEDICAID | END 2019-02-23 09:10 | disposition critical access hospital (66) | LOC: EMS 09:09 | PROVIDERS: ATTEND Surgery | DX: M25.561 Pain in right knee (principal); W19.XXXA Unspecified fall, initial encounter | CPT/HCPCS: A0425; A0429 ==

== ENCOUNTER 2019-02-23 09:23 | Emergency (ER) | payer MEDICAID ==
--- NOTE | 2019-02-23 09:39 | ED Physician Documentation ---
History of Present Illness - Stated complaint Stated Complaint: GLF - Additonal information Additional information: This is a 63-year-old female with a history of alcohol use disorder, and potentially a seizure disorder, who presents after EMS was called because she had fallen. Patient was drinking overnight, she reports EMS she only drank 2 beers but the exact amount of alcohol is unclear, this morning she was at [employer] and walking and she fell hitting her knee. She states that she has chronic issues with her right knee from being a runner in the past, but it has hurt more since her fall. She denies hitting her head. She states that she has not been able stay in a [facility] last couple nights which is been sleeping on the street. Initially when EMS arrived she declined going to ambulance, but when she got up to walk she stumbled again so they brought her here. Blood sugar was normal Review of Systems Constitutional: denies: Fever Eyes: denies: Loss of vision Throat: denies: Dental pain / toothache Cardiac: denies: Chest pain / pressure Respiratory: denies: Dyspnea GI: denies: Abdominal Pain Skin: denies: Rash Neurologic: denies: Generalized weakness PD PAST MEDICAL HISTORY - Past Medical History Cardiovascular: Hypertension, High cholesterol GI: Cirrhosis, Other : Incontinence HEENT: None Psych: Anxiety Musculoskeletal: Chronic back pain, Other - Past Surgical History Past Surgical History: Yes HEENT: Cataracts, Other - Present Medications Home Medications: Ambulatory Orders Medication Instructions Recorded Confirmed Lactulose 0 gm PO DAILY 05/10/18 08/20/18 Mupirocin 1 applic TP TID #15 g 08/20/18 Naproxen 500 mg PO BID #20 tablet 08/20/18 Vits A and D/White Pet/Lanolin [A 1 applic TP DAILY #42.5 oint...g. 08/20/18 and D Ointment] Acetaminophen 350 mg PO Q6HR #30 tablet 02/23/19 Lidocaine Patch 5% [Lidoderm Patch] 1 each TOP DAILY PRN #7 patch 02/23/19 - Allergies Allergies/Adverse Reactions: Allergies Allergy/AdvReac Type Severity Reaction Status Date / Time codeine Allergy Unknown Verified 02/23/19 09:49 loratadine Allergy Unknown Verified 02/23/19 09:49 - Social History Does the pt smoke?: No Smoking Status: Never smoker Does the pt drink ETOH?: Yes Does the pt have substance abuse?: No - Immunizations Immunizations are current?: Yes - POLST Patient has POLST: No PD ED PE NORMAL - Vitals Vital signs reviewed: Yes - General General: No acute distress, Other (Intoxicated with slurred speech, Alcohol on breath) - HEENT HEENT: Atraumatic, PERRL, Other (Slight abrasion to nose. No other signs of tr auma, no tenderness.) - Neck Neck: Supple, no meningeal sign - Cardiac Cardiac: RRR - Respiratory Respiratory: No respiratory distress, Clear bilaterally - Abdomen Abdomen: Soft, Non tender, Non distended - Derm Derm: Warm and dry - Extremities Extremities: No deformity, Other (Patient is wearing a knee brace on her right knee, appears symmetric and she has good range of motion she is able to bear weight on it. Distal strength is 5 out of 5 bilaterally. Excellent active ROM. 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 She has alcohol on her breath. She is full strength in all 4 extremities, no focal deficits.) - Psych Psych: Normal mood, Normal affect Results - Vitals Vitals: Oxygen O2 Source Room air PD MEDICAL DECISION MAKING - ED course ED course: Pt presents intoxicated. She is complaining of mild R knee pain but is walking and bearing weight on her knee without issue, and as I am talking to her she is sitting on the bed, swinging her legs by flexing and extending and the knee without any apparent discomfort. Careful exam shows no signs of signfiicant trauma to her knee or her head other than an old slight abrasion to her nose that she states was from foilage hitting her face 2 days ago. She has no headache, no reported falls. She was allowed to rest in the ED and metabolize her alcohol, on repeat exam her speech is no longer slurred, she has a steady gait, has a normal neurologic exam, is tolerating PO, and repeat exam shows no signs of trauma. She is clinically sober and feeling well and was discharged. I discussed supportive care for her knee, which appears to have a mild contusion vs strain. Departure - Departure Disposition: 01 Home, Self Care Clinical Impression: Knee pain Qualifiers: Chronicity: acute Laterality: bilateral Qualified Code(s): M25.561 - Pain in right knee Condition: Good Instructions: ED Contusion Lower Ext Prescriptions: Acetaminophen 350 mg PO Q6HR #30 tablet Lidocaine Patch 5% [Lidoderm Patch] 1 each TOP DAILY PRN #7 patch PRN Reason: Pain Comments: You were seen today pain in your right leg. I think you likely have a contusion of your knee, you may also have a little bit of an exacerbation of your sciatica. Try the Tylenol and the lidocaine patches, but use the Tylenol only as directed, because of your history of liver problems if you take too much of the Tylenol it could hurt your liver. Avoid drinking alcohol, and if you are having new or worsening symptoms return to emergency department, otherwise follow-up with your primary care provider Discharge Date/Time: 02/23/19 13:30
[2019-02-23 12:23] VITALS: BP 133/82
[2019-02-23] MEDS ORDERED: ACETAMINOPHEN 500 MG TABLET PO STA (13:03)
[2019-02-23] MEDS ORDERED: LIDOCAINE PATCH 5% TOP STA (13:03)
== END 2019-02-23 13:30 | disposition home or self-care (01) ==
LOC: EDUNIT# → ED 09:23
DX: M25.561 Pain in right knee (principal); W18.30XA Fall on same level, unspecified, initial encounter; Y93.01 Activity, walking, marching and hiking; Y92.512 Supermarket, store or market as the place of occurrence of the external cause; F10.929 Alcohol use, unspecified with intoxication, unspecified; I10 Essential (primary) hypertension
CPT/HCPCS: 99283; A9270

== ENCOUNTER 2019-03-20 16:04 | Outpatient (CLI) | payer MEDICAID, MEDICARE | END 2019-03-20 16:05 | disposition critical access hospital (66) | LOC: EMS 16:04 | PROVIDERS: ATTEND Surgery | DX: S01.21XA Laceration without foreign body of nose, initial encounter (principal); W01.198A Fall on same level from slipping, tripping and stumbling with subsequent striking against other object, initial encounter; Y93.01 Activity, walking, marching and hiking; Y92.414 Local residential or business street as the place of occurrence of the external cause | CPT/HCPCS: A0425; A0429 ==

== ENCOUNTER 2019-03-20 16:20 | Emergency (ER) | payer MEDICAID, MEDICARE ==
[2019-03-20] MEDS ORDERED: ACETAMINOPHEN 325 MG TABLET PO STA (16:42)
[2019-03-20 16:59] LABS: BASOPHILS # (AUTO) 0.1 10^3/uL (0.0-0.1); EOSINOPHILS # (AUTO) 0.1 10^3/uL (0.0-0.7); EOSINOPHILS % (AUTO) 2.2 %; HGB - HEMOGLOBIN 14.4 g/dL (12.0-16.0); LYMPHOCYTES # (AUTO) 1.6 10^3/uL (1.5-3.5); LYMPHOCYTES % (AUTO) 32.1 %; MEAN CORPUSCULAR HEMOGLOBIN 33.6 pg (27.0-31.0); MEAN CORPUSCULAR HGB CONC 33.4 g/dL (32.0-36.0); MEAN CORPUSCULAR VOLUME 100.7 fL (81.0-99.0); MEAN PLATELET VOLUME 9.8 fL (7.9-10.8); MONOCYTES # (AUTO) 0.5 10^3/uL (0.0-1.0); MONOCYTES % (AUTO) 9.5 %; NEUTROPHILS # (AUTO) 2.8 10^3/uL (1.5-6.6); PLT - PLATELET COUNT 110 10^3/uL (130-450); RED BLOOD COUNT 4.28 10^6/uL (4.20-5.40); RED CELL DISTRIBUTION WIDTH 15.7 % (12.0-15.0); WHITE BLOOD COUNT 5.1 x10^3/uL (4.8-10.8)
[2019-03-20 17:12] LABS: ALBUMIN 3.6 g/dL (3.2-5.5); ALBUMIN/GLOBULIN RATIO 1.1 (1.0-2.2); BILIRUBIN,TOTAL 2.6 mg/dL (0.2-1.0); CALCIUM 9.8 mg/dL (8.5-10.3); CREATININE 0.5 mg/dL (0.4-1.0); MAGNESIUM 1.8 mg/dL (1.7-2.8); TOTAL PROTEIN 6.9 g/dL (6.7-8.2)
--- NOTE | 2019-03-20 18:11 | CT Report ---
Reason: syncope/fall with face and neck injury Procedure Date: 03/20/2019 Accession Number: [id number] / [id number] Procedure: CT - MAXILLOFACIAL WO CPT Code: Final Report FULL RESULT: EXAM: CT MAXILLOFACIAL WITHOUT CONTRAST EXAM DATE: 03/20/2019 05:33 PM. CLINICAL HISTORY: Syncope/fall with face and neck injury. COMPARISONS: HEAD W/O 09/27/2014 9:49 PM. TECHNIQUE: Thin-section axial images were acquired of the face without contrast. Post-processing: Coronal and sagittal reformats. Other: None. In accordance with CT protocol optimization, one or more of the following dose reduction techniques were utilized for this exam: automated exposure control, adjustment of mA and/or KV based on patient size, or use of iterative reconstructive technique. FINDINGS: Soft Tissue: The infratemporal fossa and parapharyngeal spaces are unremarkable. Orbits: Symmetric and unremarkable. Bones: No fracture or bone lesion. Postsurgical changes of prior left pterional craniotomy. Temporomandibular Joints: The temporomandibular joints are symmetric and normally located. Sinuses: MO mucosal thickening involving the ethmoid air cells and the right sphenoid sinus. Polyp/retention cyst in the right maxillary sinus. Dentition: Extensive periapical lucencies about the roots of teeth 31 and 32. Visualized upper cervical spine: No fractures. Please see dedicated cervical spine CT scan report. IMPRESSION: 1. No facial or mandibular fractures. 2. Mild sinus disease as detailed in the findings section of the report. RADIA
--- NOTE | 2019-03-20 18:11 | CT Report ---
Reason: syncope/fall with face and neck injury Procedure Date: 03/20/2019 Accession Number: [id number] / [id number] Procedure: CT - HEAD WO CPT Code: Final Report FULL RESULT: EXAM: CT HEAD EXAM DATE: 03/20/2019 05:33 PM. CLINICAL HISTORY: Syncope/fall with face and neck injury. COMPARISON: Noncontrast head CT from 09/27/2014. TECHNIQUE: Multiaxial CT images were obtained from the foramen magnum to the vertex. Reformats: Sagittal and coronal. IV contrast: None. In accordance with CT protocol optimization, one or more of the following dose reduction techniques were utilized for this exam: automated exposure control, adjustment of mA and/or KV based on patient size, or use of iterative reconstructive technique. FINDINGS: Parenchyma: Patchy hypoattenuation is present in the subcortical, periventricular, deep point matter of bilateral cerebral hemispheres. The overall urban white matter differentiation is preserved. No intracranial hemorrhage demonstrated. Previously seen holohemispheric left subdural hematoma has resolved. No evidence of mass or mass-effect. Extraaxial Spaces: Mild diffuse prominence of the extra-axial spaces, compatible with cerebral volume loss. No subdural or epidural collections identified. Ventricles: Mild diffuse prominence, again compatible with cerebral volume loss. No midline shift. Basal cisterns are patent. Sinuses and Orbits: Imaged paranasal sinuses, orbits, and mastoids show no significant abnormality. Bones: There are findings of previous left frontotemporal craniotomy. Calvarium is otherwise intact. Other: None. IMPRESSION: 1. No acute intracranial abnormality. 2. Sequela of mild chronic microvascular disease. 3. Findings of previous left-sided craniotomy, presumably related to evacuation of previous left subdural hematoma. RADIA
--- NOTE | 2019-03-20 18:14 | CT Report ---
Reason: syncope/fall with face and neck injury Procedure Date: 03/20/2019 Accession Number: [id number] / [id number] Procedure: CT - CERVICAL SPINE WO CPT Code: Final Report FULL RESULT: EXAM: CT CERVICAL SPINE WITHOUT CONTRAST DATE: 03/20/2019 05:33 PM. HISTORY: Syncope/fall with face and neck injury. COMPARISONS: HEAD W/O 09/27/2014 9:49 PM. TECHNIQUE: Thin-section axial images were acquired of the cervical spine without contrast. Post-processing: Coronal and sagittal reformats. Other: None. In accordance with CT protocol optimization, one or more of the following dose reduction techniques were utilized for this exam: automated exposure control, adjustment of mA and/or KV based on patient size, or use of iterative reconstructive technique. FINDINGS: Minimal anterolisthesis C3-C4. Mild anterolisthesis C4-C5. These could be degenerative. Severe degenerative disk disease at C5-C6. Moderate to severe C6-C7 degenerative disk disease. Mild degenerative disk disease at C7-T1 and C4-C5. Moderate to severe bilateral facet arthropathy. No evidence for acute fracture. No acute soft tissue findings are seen. Right thyroid nodule measuring 1.5 cm. IMPRESSION: 1. No evidence for acute fracture. 2. Degenerative changes. See above. RADIA
[2019-03-20] MEDS ORDERED: POTASSIUM CHLORIDE 20 MEQ TABLET PO STA (18:23)
--- NOTE | 2019-03-20 18:23 | ED Physician Documentation ---
PD HPI HEAD INJURY - Stated complaint Stated Complaint: GLF/ FACE LAC - Chief complaint Chief Complaint: Trauma Hd/Nk - History obtained from History obtained from: Patient, EMS - History of Present Illness Mechanism of head injury: Fell, Other (She does not remember the fall so not clear whether she fainted or had a mechanical fall while intoxicated. She states she has a history of seizures so could not exclude a seizure per se. There is no tongue biting and no report passed down of seizure activity. Previously to nursing she states her leg had given out and caused her to fall down. She is not sure at this point.) Where head injury occurred: Street Timing - onset: How many minutes ago (30), Today Location of injury: Front (struc nose and front of face, with abrasion/lac on bridge of nose. Denies new injury to teeth. Some tender at lower lip. Some neck pain but states chronic neck pain and had Rx lido patches in the past that worked well.) Quality of pain: Aching, Dull (in nose and face) Associated symptoms: Neck pain, Paresthesias (chronic numbness right leg, not feeling different.) Symptoms worsen with: Palpation Contributing factors: Intoxicated. No: Anticoagulated Recently seen: Not recently seen Review of Systems Nose: denies: Epistaxis Throat: denies: Dental pain / toothache Cardiac: denies: Chest pain / pressure Respiratory: denies: Dyspnea, Cough GI: denies: Abdominal Pain, Nausea, Vomiting Musculoskeletal: reports: Neck pain (chronic). denies: Extremity pain Neurologic: reports: Numbness (ongoing numbness right leg from "sciatic"), Seizure (history fo seizures per patient, but not on seizure med (she says diazepam as needed?)). denies: Headache PD PAST MEDICAL HISTORY - Past Medical History Past Medical History: Yes Cardiovascular: Hypertension, High cholesterol Respiratory: None Neuro: Seizure disorder Endocrine/Autoimmune: None GI: Cirrhosis, Other PROCESS COORDINATOR: None : Incontinence HEENT: None Psych: Anxiety Musculoskeletal: Chronic back pain, Other Derm: None - Past Surgical History Past Surgical History: Yes HEENT: Cataracts, Other - Present Medications Home Medications: Ambulatory Orders Medication Instructions Recorded Confirmed Lactulose 0 gm PO DAILY 05/10/18 08/20/18 Mupirocin 1 applic TP TID #15 g 08/20/18 Naproxen 500 mg PO BID #20 tablet 08/20/18 Vits A and D/White Pet/Lanolin [A 1 applic TP DAILY #42.5 oint...g. 08/20/18 and D Ointment] Acetaminophen 350 mg PO Q6HR #30 tablet 02/23/19 Lidocaine Patch 5% [Lidoderm Patch] 1 each TOP DAILY PRN #10 patch 03/20/19 Naproxen 500 mg PO BID #20 tablet 03/20/19 - Allergies Allergies/Adverse Reactions: Allergies Allergy/AdvReac Type Severity Reaction Status Date / Time codeine Allergy Unknown Verified 03/20/19 16:28 loratadine Allergy Unknown Verified 03/20/19 16:28 - Living Situation Living Arrangement: reports: Homeless (staying in [facility]) - Social History Does the pt smoke?: No Smoking Status: Never smoker Does the pt drink ETOH?: Yes Does the pt have substance abuse?: No - Immunizations Immunizations are current?: Yes - POLST Patient has POLST: No PD ED PE NORMAL - Vitals Vital signs reviewed: Yes - General General: Alert and oriented X 3 (with mild slurring of speech, and smell of alcohol on breath. ), No acute distress, Well developed/nourished, Other (abrasion nasal bridge with dried blood and minimal ongoing bleeding. Swelling without deformity. locally tender. ) - Neck Neck: Supple, no meningeal sign, Other (some tenderness lower right cervical area, without deformity) - Cardiac Cardiac: RRR, No murmur - Respiratory Respiratory: Clear bilaterally, Other (no chestwall tenderness) - Abdomen Abdomen: Soft, Non tender - Back Back: No CVA TTP, No spinal TTP - Derm Derm: Normal color, Warm and dry - Extremities Extremities: No tenderness to palpate, Normal ROM s pain - Neuro Neuro: Alert and oriented X 3, No motor deficit, No sensory deficit (has sensation to pinprick both legs. Normal knee reflexes. ), Normal speech Results - Vitals Vitals: Vital Signs - 24 hr 03/20/19 03/20/19 16:28 16:33 Temperature 36.9 C 36.9 C Heart Rate 68 68 Respiratory 16 14 Rate Blood Pressure 130/70 130/70 O2 Saturation 95 95 Oxygen O2 Source Room air - Labs Labs: Laboratory Tests 03/20/19 03/20/19 16:54 16:54 WBC 5.1 RBC 4.28 Hgb 14.4 Hct 43.1 MCV 100.7 H MCH 33.6 H MCHC 33.4 RDW 15.7 H Plt Count 110 L MPV 9.8 Neut # (Auto) 2.8 Lymph # (Auto) 1.6 [place] # (Auto) 0.5 Eos # (Auto) 0.1 Baso # (Auto) 0.1 Absolute Nucleated RBC 0.00 Nucleated RBC % 0.0 Sodium 145 Potassium 3.0 L Chloride 106 Carbon Dioxide 26 Anion Gap 13.0 BUN 13 Creatinine 0.5 Estimated GFR (MDRD) 125 Glucose 116 H Calcium 9.8 Magnesium 1.8 Total Bilirubin 2.6 H AST 52 H ALT 27 Alkaline Phosphatase 93 Total Protein 6.9 Albumin 3.6 Globulin 3.3 Albumin/Globulin Ratio 1.1 Lipase 64 H Ethyl Alcohol 246.0 - Rads (name of study) head CT Radiology: Prelim report reviewed (prior surgical changes, no acute bleed), See rad report facial CT Radiology: Prelim report reviewed (no fractures), See rad report neck CT Radiology: Prelim report reviewed (degenerative changes; no fractures), See rad report PD MEDICAL DECISION MAKING - ED course Complexity details: re-evaluated patient (She is ambulatory to the bathroom without any notable ataxia. She is able to answer questions appropriately. Even though she still is intoxicated by blood alcohol, she is clinically able to ambulate and such. Along those lines we can try to get her out to catch the bus so she can see if she can make it back [facility] considered differential (Facial injury with abrasion of the nose and swelling. Can get a CT of the face to evaluate for fractures. We will also CT her head and neck due to her intoxication and hard to assess level of injury. She is able to converse okay. There is smell of alcohol on her breath. She is not sure if she had a seizure or just passed out. She does not have any abrasions of her tongue but could not exclude seizure necessarily. No other apparent injury at this time.), d/w patient ED course: Benzoin and Steri-Strips were applied to the nose abrasion after cleaning with soap and water. Bleeding was stopped. Departure - Departure Disposition: 01 Home, Self Care Clinical Impression: Neck pain Facial abrasion Qualifiers: Encounter type: initial encounter Qualified Code(s): S00.81XA - Abrasion of other part of head, initial encounter Alcohol intoxication Qualifiers: Complication of substance-induced condition: uncomplicated Qualified Code(s): F10.920 - Alcohol use, unspecified with intoxication, uncomplicated Syncope Qualifiers: Syncope type: unspecified Qualified Code(s): R55 - Syncope and collapse Condition: Stable Record reviewed to determine appropriate education?: Yes Instructions: ED Alcohol Intoxication, ED Abrasion Follow-Up: Odette Sheikh ARNP [Primary Care Provider] - Prescriptions: Lidocaine Patch 5% [Lidoderm Patch] 1 each TOP DAILY PRN #10 patch PRN Reason: Pain Naproxen 500 mg PO BID #20 tablet Comments: Stay well-hydrated. Avoid excess alcohol. Ibuprofen or naproxen twice daily for pains. Use a lidocaine patch if needed for neck or back pains. Your CT scan of the face did not show any fractures. The head and neck scans were also did not show any acute abnormality. Allow the Steri-Strips on the nose abrasion to fall off on their own after several days and then start routine wound care of ointment after cleaning once or twice daily. Recheck if signs of infection.
[2019-03-20 18:43] VITALS: BP 125/67
== END 2019-03-20 18:47 | disposition home or self-care (01) ==
LOC: EDUNIT# → ED 16:20
DX: I10 Essential (primary) hypertension (principal); S00.31XA Abrasion of nose, initial encounter; W19.XXXA Unspecified fall, initial encounter; M54.2 Cervicalgia; F10.129 Alcohol abuse with intoxication, unspecified; R55 Syncope and collapse
CPT/HCPCS: 36415; 70450; 70486; 72125; 80053; 80320; 83690; 83735; 85025; 99284; A9270

== ENCOUNTER 2019-10-07 17:15 | Outpatient (CLI) | payer MEDICAID | END 2019-10-07 23:59 | disposition EMS.NT | LOC: EMS 17:15 | PROVIDERS: ATTEND Surgery | DX: R26.81 Unsteadiness on feet (principal); Z72.89 Other problems related to lifestyle ==

== ENCOUNTER 2019-10-19 17:31 | Outpatient (CLI) | payer MEDICAID | END 2019-10-19 17:32 | disposition critical access hospital (66) | LOC: EMS 17:31 | PROVIDERS: ATTEND Surgery | DX: R52 Pain, unspecified (principal) | CPT/HCPCS: A0425; A0429; A0999 ==

== ENCOUNTER 2019-10-19 17:48 | Observation (INO) | payer MEDICAID ==
[2019-10-19] MEDS ORDERED: MORPHINE 2 MG/ML CARPUJECT IVP STA (18:37)
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
[2019-10-19 19:12] LABS: INR 1.4 (0.8-1.2)
[2019-10-19 19:16] LABS: BASOPHILS % (AUTO) 0.2 %; EOSINOPHILS % (AUTO) 0.8 %; HGB - HEMOGLOBIN 13.1 g/dL (12.0-16.0); KETONES, SERUM (ACETEST) NEGATIVE (NEGATIVE); LYMPHOCYTES % (AUTO) 6.2 %; MEAN CORPUSCULAR HEMOGLOBIN 35.2 pg (27.0-31.0); MEAN CORPUSCULAR HGB CONC 36.6 g/dL (32.0-36.0); MEAN CORPUSCULAR VOLUME 96.2 fL (81.0-99.0); MEAN PLATELET VOLUME 12.6 fL (7.9-10.8); MONOCYTES % (AUTO) 15.3 %; NEUTROPHILS % (AUTO) 70.3 %; PLT - PLATELET COUNT 90 10^3/uL (130-450); RED BLOOD COUNT 3.72 10^6/uL (4.20-5.40); RED CELL DISTRIBUTION WIDTH 16.3 % (12.0-15.0); WHITE BLOOD COUNT 23.8 x10^3/uL (4.8-10.8)
[2019-10-19 19:19] LABS: ABNORMAL LYMPHS % (MANUAL) 0 %
[2019-10-19 19:25] LABS: ACETAMINOPHEN < 10 ug/mL (10-30); ALBUMIN 2.2 g/dL (3.2-5.5); ALBUMIN/GLOBULIN RATIO 0.6 (1.0-2.2); ALKALINE PHOSPHATASE 111 IU/L (42-121); ALT ALANINE AMINOTRANSFERASE 42 IU/L (10-60); AST ASPARTATE AMINOTRANSFERASE 90 IU/L (10-42); BILIRUBIN,TOTAL 28.8 mg/dL (0.2-1.0); CALCIUM 8.6 mg/dL (8.5-10.3); CARBON DIOXIDE - CO2 19 mmol/L (21-32); CHLORIDE 92 mmol/L (101-111); CREATININE 1.5 mg/dL (0.4-1.0); GLUCOSE 111 mg/dL (70-100); LIPASE 116 U/L (22-51); MAGNESIUM 2.6 mg/dL (1.7-2.8); SALICYLATE 9.5 mg/dL; SODIUM 128 mmol/L (135-145); TOTAL PROTEIN 5.7 g/dL (6.7-8.2)
[2019-10-19 19:28] LABS: VBG BASE EXCESS -5.6 mmol/L (-2 - +2); VBG PCO2 33.5 mmHg (41-51); VBG PH 7.365 (7.31-7.41); VBG TOTAL CO2 19.7 mmol/L (24-29)
[2019-10-19 19:30] LABS: BUN - BLOOD UREA NITROGEN 81 mg/dL (6-20)
[2019-10-19] MEDS ORDERED: SODIUM CHLORIDE 0.9% 1,000 ML IV STA (19:38)
[2019-10-19] MEDS ORDERED: IOVERSOL 320 100 ML VIAL IVP ONE ×2 (19:53→21:06)
[2019-10-19 19:54] LABS: BAND NEUTROPHILS % (MANUAL) 9 %; LYMPHOCYTES # (MANUAL) 2.1 10^3/uL (1.5-3.5); LYMPHOCYTES % (MANUAL) 5 %; METAMYELOCYTES % (MANUAL) 2 %; MONOCYTES # (MANUAL) 2.6 10^3/uL (0.0-1.0); RBC MORPHOLOGY (MULTIPLE) NORMAL APPEARANCE (NORMAL)
[2019-10-19 19:55] LABS: DIFFERENTIAL COMMENT MANUAL DIFFERENTIAL; PLATELET ESTIMATE, MANUAL DECREASED (<130,000) (NORMAL); PLATELET MORPHOLOGY RARE GIANT PLATELETS (NORMAL)
--- NOTE | 2019-10-19 20:34 | CT Report ---
PROCEDURE: HEAD WO INDICATIONS: head inj TECHNIQUE: Noncontrast 4.5 mm thick angled axial sections acquired from the foramen magnum to the vertex. For r adiation dose reduction, the following was used: automated exposure control, adjustment of mA and/or kV according to patient size. COMPARISON: 03.20.19 FINDINGS: Image quality: Excellent. CSF spaces: Basal cisterns are patent. No extra-axial fluid collections. Ventricles are normal in size and shape. Brain: No midline shift. No intracranial masses or hemorrhage. Rodriguez-white matter interface is norm al. Skull and face: Left frontal craniotomy, as before. Calvarium and visualized facial bones are otherw ise intact, without suspicious lesions. Sinuses: Visualized sinuses and mastoids are clear. IMPRESSION: No acute process. Reviewed by: Marisa Tucker MD on 10/19/2019 8:33 PM PDT Approved by: Marisa Tucker MD on 10/19/2019 8:33 PM PDT Station ID: [id number]
--- NOTE | 2019-10-19 20:35 | CT Report ---
PROCEDURE: CERVICAL SPINE WO INDICATIONS: neck inj TECHNIQUE: Noncontrast 3 mm thick sections acquired from the skull base to the T4 level. Sagittal and coronal r eformats were then constructed. For radiation dose reduction, the following was used: automated exp osure control, adjustment of mA and/or kV according to patient size. COMPARISON: 03.20.19 FINDINGS: Image quality: Excellent. Bones: No fractures or dislocations. Visualized superior ribs are intact. Multilevel disc space na rrowing and endplate osteophyte formation. Multilevel facet hypertrophy. Soft tissues: Prevertebral soft tissues are normal in thickness. No paravertebral hematomas. No ap ical pneumothoraces. IMPRESSION: No fracture. Reviewed by: Marisa Tucker MD on 10/19/2019 8:34 PM PDT Approved by: Marisa Tucker MD on 10/19/2019 8:34 PM PDT Station ID: [id number]
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
[2019-10-19 20:39] LABS: MUDS CUTOFF CONCENTRATIONS CUTOFF CONC BELOW:
[2019-10-19 20:54] LABS: AMPHETAMINE SCREEN,URINE NEGATIVE (NEGATIVE); BENZODIAZEPINES SCREEN, URINE NEGATIVE (NEGATIVE); COCAINE SCREEN URINE NEGATIVE (NEGATIVE); METHADONE SCREEN, URINE NEGATIVE (NEGATIVE); METHAMPHETAMINES SCREEN, URINE NEGATIVE (NEGATIVE); OPIATE SCREEN, URINE POSITIVE (NEGATIVE); OXYCODONE SCREEN, URINE NEGATIVE (NEGATIVE); PROPOXYPHENE SCREEN, URINE NEGATIVE (NEGATIVE); TRICYCLIC ANTIDEPRESSANT,URINE NEGATIVE (NEGATIVE)
[2019-10-19 21:05] LABS: GLUCOSE, URINE (UA) 100 mg/dL (NEGATIVE); KETONES,URINE (UA) TRACE mg/dL (NEGATIVE); LEUKOCYTE ESTERASE, URINE TRACE (NEGATIVE); NITRITE,URINE NEGATIVE (NEGATIVE); OCCULT BLOOD,URINE LARGE (NEGATIVE); PH,URINE 5.5 PH (5.0-7.5)
[2019-10-19 21:23] LABS: CLARITY,URINE CLEAR (CLEAR)
[2019-10-19 21:24] LABS: BILIRUBIN,URINE LARGE (NEGATIVE); ICTOTEST,URINE POSITIVE
[2019-10-19 21:25] LABS: BACTERIA,URINE Few /HPF (None Seen); SQUAMOUS EPITHELIAL CELL,UR FEW Squamous (<= Few)
[2019-10-19] MEDS ORDERED: ONDANSETRON 4 MG/2 ML VIAL IVP PRN (21:36)
[2019-10-19] MEDS ORDERED: ONDANSETRON ODT 4 MG TABLET TL PRN (21:36)
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
[2019-10-19] MEDS ORDERED: MAG HYDROX/AL HYDROX/SIMETH 30 ML UDC PO STA (22:06)
[2019-10-19] MEDS ORDERED: LIDOCAINE VISCOUS 2% 15 ML UDC MM STA (22:06)
[2019-10-19] MEDS: LACTATED RINGERS 1,000 ML IV SCH (22:51)
[2019-10-19] MEDS ORDERED: MAGNESIUM SULFATE 2 GRAM 2 GM/50 ML BAG IV ONE (23:22)
[2019-10-19] MEDS ORDERED: THIAMINE INJ 100 MG in SODIUM CHLORIDE 0.9% 50 ML IV ONE (23:24)
[2019-10-19] MEDS ORDERED: FOLIC ACID INJ 1 MG in SODIUM CHLORIDE 0.9% 1,000 ML IV STA (23:24)
[2019-10-20] MEDS ORDERED: FOLIC ACID IV STA (00:05)
[2019-10-20] MEDS ORDERED: SODIUM CHLORIDE 0.9% IV STA (00:05)
[2019-10-20] MEDS ORDERED: FOLIC ACID 5 MG/1 ML 10ML MDV ONE (00:27)
[2019-10-20] MEDS ORDERED: THIAMINE 100 MG/1 ML 2 ML MDV ONE (01:46)
[2019-10-20] MEDS: oxyCODONE 5 MG TABLET PO PRN ×2 (02:35→06:52)
[2019-10-20 05:01] LABS: BASOPHILS % (AUTO) 0.1 %; EOSINOPHILS % (AUTO) 0.3 %; HGB - HEMOGLOBIN 10.9 g/dL (12.0-16.0); INR 1.5 (0.8-1.2); LYMPHOCYTES % (AUTO) 4.1 %; MEAN CORPUSCULAR HEMOGLOBIN 34.3 pg (27.0-31.0); MEAN CORPUSCULAR HGB CONC 35.7 g/dL (32.0-36.0); MEAN CORPUSCULAR VOLUME 95.9 fL (81.0-99.0); MONOCYTES % (AUTO) 11.9 %; NEUTROPHILS % (AUTO) 77.7 %; PT - PROTHROMBIN TIME 16.3 secs (9.9-12.6); RED BLOOD COUNT 3.18 10^6/uL (4.20-5.40); RED CELL DISTRIBUTION WIDTH 16.1 % (12.0-15.0); WHITE BLOOD COUNT 24.1 x10^3/uL (4.8-10.8)
[2019-10-20 05:06] LABS: PLT - PLATELET COUNT 27 10^3/uL (130-450)
[2019-10-20 05:07] LABS: ABNORMAL LYMPHS % (MANUAL) 0 %; BAND NEUTROPHILS % (MANUAL) 0 %
[2019-10-20 05:14] LABS: ALBUMIN 1.9 g/dL (3.2-5.5); ALBUMIN/GLOBULIN RATIO 0.6 (1.0-2.2); BILIRUBIN,TOTAL 26.3 mg/dL (0.2-1.0); CALCIUM 8.2 mg/dL (8.5-10.3); CREATININE 1.6 mg/dL (0.4-1.0); TOTAL PROTEIN 5.1 g/dL (6.7-8.2)
[2019-10-20 05:59] LABS: BASOPHILS # (MANUAL) 0.5 10^3/uL (0-0.1); BASOPHILS % (MANUAL) 2 %; LYMPHOCYTES # (MANUAL) 0.5 10^3/uL (1.5-3.5); LYMPHOCYTES % (MANUAL) 2 %; MONOCYTES # (MANUAL) 2.4 10^3/uL (0.0-1.0)
[2019-10-20 06:00] LABS: DIFFERENTIAL COMMENT MANUAL DIFFERENTIAL; PLATELET ESTIMATE, MANUAL DECREASED (<130,000) (NORMAL); PLATELET MORPHOLOGY NORMAL APPEARANCE (NORMAL)
[2019-10-20] MEDS: SODIUM CHLORIDE FLUSH 0.9% 10 ML SYRINGE IVP SCH ×2 (06:33→09:11)
[2019-10-20] MEDS: SODIUM CHLORIDE FLUSH 0.9% 10 ML SYRINGE IVP PRN ×2 (06:54→10:24)
[2019-10-20] MEDS ORDERED: PANTOPRAZOLE 40 MG VIAL IVP SCH ×2 (07:00→21:00)
[2019-10-20] MEDS ORDERED: LACTULOSE 10 GM /15 ML UDC PO SCH ×2 (07:30→09:00)
[2019-10-20] MEDS ORDERED: LORazepam 2 MG/ML VIAL IVP PRN (08:39)
[2019-10-20] MEDS ORDERED: MULTIVITAMIN 10 ML, THIAMINE INJ 100 MG, FOLIC ACID INJ 1 MG, POTASSIUM CHLORIDE INJ 20... IV SCH ×5 (09:00)
[2019-10-20] MEDS ORDERED: MULTIVITAMIN 10 ML, THIAMINE INJ 100 MG, FOLIC ACID INJ 1 MG in D5.45NS W/20 MEQ KCL 1,... IV SCH (09:00)
[2019-10-20] MEDS: PHENAZOPYRIDINE 100 MG TABLET PO SCH ×2 (09:13→11:33)
[2019-10-20] MEDS: LACTULOSE 10 GM /15 ML UDC PO SCH ×2 (09:13→13:34)
--- NOTE | 2019-10-20 09:17 | Ultrasound Report ---
PROCEDURE: Abdomen Complete INDICATIONS: liver failure TECHNIQUE: Real-time scanning was performed of the abdominal and retroperitoneal organs, with image documentatio n. COMPARISON: None. FINDINGS: Liver: Liver is normal in size. Liver has heterogeneous, coarse increased echotexture. No focal hepa tic mass lesions. No intrahepatic biliary tree dilatation. Liver has nodular margins. Gallbladder: Gallbladder is prominent. No gallstones. No gallbladder wall thickening with gallbladder wall measuring 2.6 mm. Small amount pericholecystic fluid noted. No sonographic Paul sign. Biliary ducts: Intrahepatic bile ducts are non-dilated. Extrahepatic bile duct caliber measures 3.0 mm. Normal is 6-7 mm or less in diameter, or 10 mm or less post-cholecystectomy. Pancreas: Pancreas is poorly visualized due to bowel gas. Small 1.3 x 1.1 x 1.6 cm hypoechoic lesions noted in the distal body of the pancreas which corresponds to lesion identified by CT scan 09/20 0. Pancreatic MRI recommended for further evaluation. Spleen: Spleen is mildly enlarged measuring 14.0 x 4.9 x 13.5 Kidneys: Kidneys are normal in size and echotexture. Right kidney measures 13.7 cm long; left kidne y measures 13.3 cm long. No hydronephrosis or nephrolithiasis. No solid masses. Small [address] left renal cyst. Aorta: Visualized aorta is normal in caliber at less than 3 cm. Distal abdominal aorta is not visual ized due to bowel gas and cannot be evaluated. Iliacs: Obscured by bowel gas and cannot be evaluated. IVC: Intrahepatic inferior vena cava is patent. Miscellaneous: No free abdominal fluid. IMPRESSION: 1. Echogenic liver with nodular liver margins most compatible with hepatic cirrhosis. 2. Small amount of pericholecystic fluid without sonographic evidence of cholecystitis. Fluid is like ly related to hepatic disease. 3. Mild splenomegaly. 4. Small hypoattenuating lesion in the distal body of the pancreas corresponds to lesion identified b y prior CT scan. MRI (pancreatic protocol) is recommended for further evaluation. Reviewed by: Janice Mcpherson MD, PhD on 10/20/2019 9:16 AM PDT Approved by: Janice Mcpherson MD, PhD on 10/20/2019 9:16 AM PDT Station ID: [id number]
[2019-10-20] MEDS ORDERED: OCTREOTIDE 100 MCG/ML VIAL IVP STA (09:19)
[2019-10-20] MEDS ORDERED: cefTRIAXone 1 GM in SODIUM CHLORIDE 0.9% MINIBAG 100 ML IV STA (09:19)
--- NOTE | 2019-10-20 09:21 | XRAY Report ---
PROCEDURE: Chest 1 View X-Ray INDICATIONS: sob TECHNIQUE: One view of the chest was acquired. COMPARISON: 08/20/2018 and 05/10/2018 FINDINGS: Surgical changes and devices: None. Lungs and pleura: No pleural effusions or pneumothorax. Lungs are clear. Mediastinum: Mediastinal contours appear normal. Heart size is normal. Bones and chest wall: No suspicious bony lesions. Overlying soft tissues appear unremarkable. IMPRESSION: Stable examination of the chest without acute cardiopulmonary abnormalities. Reviewed by: Dane Forrest MD on 10/20/2019 9:19 AM PDT Approved by: Dane Forrest MD on 10/20/2019 9:19 AM PDT Station ID: [id number]
[2019-10-20 09:37] LABS: BASOPHILS % (AUTO) 0.1 %; EOSINOPHILS % (AUTO) 0.4 %; LYMPHOCYTES % (AUTO) 4.9 %; MEAN CORPUSCULAR HEMOGLOBIN 34.5 pg (27.0-31.0); MEAN CORPUSCULAR HGB CONC 35.6 g/dL (32.0-36.0); MEAN CORPUSCULAR VOLUME 96.9 fL (81.0-99.0); MONOCYTES % (AUTO) 11.4 %; NEUTROPHILS % (AUTO) 76.7 %; RED BLOOD COUNT 3.19 10^6/uL (4.20-5.40); RED CELL DISTRIBUTION WIDTH 16.3 % (12.0-15.0); WHITE BLOOD COUNT 26.4 x10^3/uL (4.8-10.8)
[2019-10-20] MEDS: LACTATED RINGERS 1,000 ML IV SCH (09:40)
[2019-10-20 09:46] LABS: PLT - PLATELET COUNT 28 10^3/uL (130-450)
[2019-10-20] MEDS ORDERED: OCTREOTIDE 500 MCG in SODIUM CHLORIDE 0.9% 100ML 99 ML IV SCH (10:00)
[2019-10-20 10:09] LABS: ABNORMAL LYMPHS % (MANUAL) 0 %
[2019-10-20 10:11] LABS: BAND NEUTROPHILS % (MANUAL) 6 %; DIFFERENTIAL COMMENT MANUAL DIFFERENTIAL; LYMPHOCYTES # (MANUAL) 0.3 10^3/uL (1.5-3.5); LYMPHOCYTES % (MANUAL) 1 %; MONOCYTES # (MANUAL) 3.7 10^3/uL (0.0-1.0); MYELOCYTES % (MANUAL) 2 %
--- NOTE | 2019-10-20 14:50 | PHARMACY PROGRESS NOTE ---
- Best Possible Medication History Admit Date and Time: 10/19/196 Processed by: Pharmacy Medication History completed: Yes Patient Interview: Completed Secondary Source(s): Pharmacy records, Insurance records (PATIENT INTERVIEWED BY GARDEN IMPLEMENT MECHANIC. PATIENT ABLE TO CONFRIM HOME MEDICATIONS) As the person ultimately responsible for medication therapy, providers are able to order a medication from an existing home medication list in [facility] via the "Reconcile Routine" prior to Confirmation of that medication by high school learning support teacher. Such practice is discouraged except when the physician, in their clinical judgment, deems that a medical need exists for a medication without regard to previous use.
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
[2019-10-20 18:28] VITALS: BP 92/53
[2019-10-21] MEDS ORDERED: cefTRIAXone 1 GM in SODIUM CHLORIDE 0.9% MINIBAG 100 ML IV SCH (09:00)
[2019-10-21 13:54] LABS: HEPATITIS A IGM NON-REACTIVE (NON-REACTIVE); HEPATITIS B SURFACE ANTIGEN NON-REACTIVE (NON-REACTIVE); HEPATITIS C ANTIBODY REACTIVE (NON-REACTIVE)
== END 2019-10-20 17:00 | disposition short-term general hospital (02) ==
LOC: EDUNIT# → ED 17:48 → MS3 21:36
PROVIDERS: ADMIT Specialist; ATTEND Nurse Practitioner Gerontology
DX: K92.0 Hematemesis (principal); E87.2 Acidosis; K72.90 Hepatic failure, unspecified without coma; E86.0 Dehydration; F10.229 Alcohol dependence with intoxication, unspecified; Y90.6 Blood alcohol level of 120-199 mg/100 ml; D69.6 Thrombocytopenia, unspecified; D72.829 Elevated white blood cell count, unspecified; I10 Essential (primary) hypertension; F17.210 Nicotine dependence, cigarettes, uncomplicated; G40.909 Epilepsy, unspecified, not intractable, without status epilepticus; K76.6 Portal hypertension; B19.20 Unspecified viral hepatitis C without hepatic coma; K70.30 Alcoholic cirrhosis of liver without ascites; Z59.0 Homelessness; R01.1 Cardiac murmur, unspecified
CPT/HCPCS: 36415; 36430; 70450; 71045; 72125; 74177; 76700; 80053; 80074; 80306; 80307; 80320; 80329; 81001; 82009; 82140; 82803; 83605; 83690; 83735; 85018; 85025; 85610; 86850; 86900; 86901; 86922; 87040; 87077; 87086; 87181; 96361; 96365; 96366; 96367; 96368; 96375; 99285; A9270; G0378; J2060; J2354; J3411; J3480; J7040; J7120; P9016; Q9967; 81003; 86920

== ENCOUNTER 2019-10-20 17:07 | Outpatient (CLI) | payer MEDICAID | END 2019-10-20 17:08 | disposition short-term general hospital (02) | LOC: EMS 17:07 | PROVIDERS: ATTEND Surgery | DX: K92.0 Hematemesis (principal); K72.90 Hepatic failure, unspecified without coma; F10.20 Alcohol dependence, uncomplicated | CPT/HCPCS: A0425; A0426 ==